=== PATIENT | male | born 2000 | race Caucasian/White ===

== ENCOUNTER 2021-03-15 10:22 | Emergency (ER) | payer SELFPAY ==
[2021-03-15 10:33] VITALS: BP 132/83; PULSE 77; TEMP 98.6; BMI 24.9
[2021-03-15] MEDS ORDERED: KETOROLAC TROMETHAMINE 30 MG/1 ML VIAL ONE (11:53)
[2021-03-15] MEDS ORDERED: KETOROLAC TROMETHAMINE 30 MG/1 ML VIAL IM ONE (12:03)
== END 2021-03-15 12:08 | disposition home or self-care (01) ==
LOC: JER 10:22 → JERFT 10:22
PROC: 3E0233Z Introduction of Anti-inflammatory into Muscle, Percutaneous Approach (ICD-10-PCS; principal; 2021-03-15)
DX: S50.12XA Contusion of left forearm, initial encounter (principal); S50.812A Abrasion of left forearm, initial encounter
CPT/HCPCS: 73070-TC-LT-FY; 73090-TC-LT-FY; 99284-25